=== PATIENT | male | born 1985 | race Caucasian/White ===

== ENCOUNTER 2019-02-15 08:30 | Inpatient (IN) ==
[2019-02-15 09:08] LABS: URINE SOURCE CLEAN CATCH
[2019-02-15 09:11] LABS: BASO# 0.03 X1000 (0.0-0.2); BASO% 0.2 % (0.0-0.8); EOS# 0.05 X1000 (0.0-0.7); EOS% 0.4 % (0.0-10.0); HEMATOCRIT 45.6 % (42.0-52.0); HEMOGLOBIN 15.5 g/dL (14.0-18.0); IMM GRAN# 0.02 X1000 (0.0-0.04); IMM GRAN% 0.2 % (0.0-0.5); LYMPH# 2.67 X1000 (1.2-3.4); LYMPH% 21.6 % (20.5-51.1); MCH 29.8 PG (27-31); MCV 87.7 FL (81-99); MONO# 1.01 X1000 (0.11-0.59); MONO% 8.2 % (1.7-9.3); MPV 10.9 FL (7.4-10.4); NEUT# 8.59 X1000 (1.4-6.5); NEUT% 69.4 % (42.2-75.2); PLT 254 X1000 (130-400); RDW 13.5 % (11.5-14.5); WBC 12.37 X1000 (4.8-10.8)
[2019-02-15 09:12] LABS: BILIRUBIN URINE NEGATIVE (NEGATIVE); BLOOD URINE LARGE (NEGATIVE); COLOR YELLOW; GLUCOSE URINE NEGATIVE (NEGATIVE); KETONE URINE NEGATIVE (NEGATIVE); LEUKOCYTES URINE NEGATIVE (NEGATIVE); NITRITE URINE NEGATIVE (NEGATIVE); PH URINE 5.5; PROTEIN URINE TRACE mg/dL (NEGATIVE); SP GRAVITY URINE 1.023; TURBIDITY URINE CLEAR (CLEAR); UROBILINOGEN URINE NORMAL (NORMAL)
[2019-02-15 09:13] LABS: UR EPITHELIAL CELLS <10 /HPF (<10); URINE BACTERIA NEGATIVE /HPF; URINE RBC TNTC /HPF (<10); URINE WBC <10 /HPF (<10)
[2019-02-15 09:32] LABS: AGAP 8; ALB/GLOB RATIO 1.4; ALBUMIN 4.2 g/dL (3.5-5.0); ALKALINE PHOSPHATASE 89 U/L (32-122); AMYLASE 45 U/L (20-200); BUN 12 mg/dL (8-22); CALCIUM 9.2 mg/dL (8.8-10.2); CHLORIDE 107 mmol/L (98-107); COSMO 280; CREATININE 0.9 mg/dL (0.7-1.2); ESTIMATED GFR > 60; GLUCOSE 106 mg/dL (70-104); GOT 12 U/L (10-34); GPT 10 U/L (10-44); LIPASE 27 U/L (13-60); POTASSIUM 4.4 mmol/L (3.5-5.1); SODIUM 140 mmol/L (136-145); TCO2 25 mmol/L (25-35); TOTAL BILIRUBIN 0.24 mg/dL (0.20-1.00); TOTAL PROTEIN 7.3 g/dL (6.3-8.3)
[2019-02-15] MEDS ORDERED: NS 1,000 ML IV ONE (10:26)
[2019-02-15] MEDS ORDERED: ZOFRAN IV ONE (10:26)
[2019-02-15] MEDS ORDERED: MORPHINE IV ONE (10:26)
--- NOTE | 2019-02-15 10:30 | PROVIDER DOCUMENTATION ---
HPI-Abdominal Pain/GI Problem - General Chief Complaint: Abdominal Pain Stated Complaint: ABD PAIN Time Seen by Provider: 02/15/19 10:04 Source: patient Allergies/Adverse Reactions: Patient Allergies Allergy/AdvReac Type Severity Reaction Status Date / Time Bleach (Sodium Hypochlorite) AdvReac Intermediate SHORTNESS Verified 11/14/18 13:54 OF BREATH buprenorphine HCl * AdvReac "makes me Verified 11/14/18 13:54 [From Buprenex] insane" Home Medications: Home Medication List Medication Instructions Recorded Confirmed Last Taken Type Infliximab [Remicade] 0 mg IV DIRECTED 11/04/16 08/27/18 09/07/17 History 0 Dronabinol [Marinol] 2.5 mg PO BID 10/12/17 08/27/18 08/23/18 History Ondansetron [Zofran Odt] 4 mg PO 4XDAY PRN PRN #40 08/26/18 08/27/18 08/26/18 Rx tab.rapdis Acetaminophen 1 - 2 tab PO Q6H PRN PRN #60 tab 09/04/18 Unknown Rx Levofloxacin [Levaquin] 500 mg PO DAILY #7 tab 09/04/18 Unknown Rx Metronidazole [Flagyl] 500 mg PO TID #21 tab 09/04/18 Unknown Rx Nicotine Patch [Nicoderm Patch] 14 mg TD DAILY patch.td24 09/04/18 Unknown Rx Omeprazole 20 mg PO BID #28 capsule. 09/04/18 Unknown Rx Prednisone [Deltasone] 20 mg PO DAILY #30 tab 09/04/18 Unknown Rx - History of Present Illness-ABD Nature of Presenting Problems: Patient is a 33 yowm who complains of lower abdominal pain that radiates to right testicle since this morning. Had gross hematuria 2 weeks ago that has since resolved. Denies back/flank pain. Denies fever or dysuria. He cannot remember if the pain started in his testicle or in his abdomen. Pain is associated with nausea. He denies any other symptoms and is non-toxic in appearance. Review of Systems - Adult - REVIEW OF SYSTEMS - ADULT Constitutional: reports: no symptoms reported. denies: chills, fever Eyes: reports: no symptoms reported Ears, Nose, Mouth & Throat: reports: no symptoms reported Cardiovascular: reports: no symptoms reported Respiratory: reports: no symptoms reported Gastrointestinal: reports: see HPI, abdominal pain, diarrhea (Hx of Crohn's- pt reports chronic diarrhea), nausea. denies: rectal bleeding, vomiting Genitourinary: reports: see HPI, other (right testicular pain). denies: dysuria, frequency, flank pain, hematuria, urinary retention, urgency Musculoskeletal: reports: no symptoms reported Integumentary: reports: no symptoms reported Neurological: reports: no symptoms reported Psychiatric: reports: no symptoms reported Endocrine: reports: no symptoms reported Hematologic/Lymphatic: reports: no symptoms reported Allergic/Immunologic: reports: no symptoms reported All Other Systems: Reviewed and Negative Past History - Adult - PAST MEDICAL HISTORY-ADULT Review of Records: reports: Old Records Reviewed, Nursing Assessment Review, Med ications Reviewed, Social history reviewed & non-contributory. Major Childhood Illnesses: reports: denies history Cardiovascular: reports: denies history Respiratory: reports: denies history Gastrointestinal: reports: Crohn's Obstetrical/Gynecological: reports: denies history Genitourinary: reports: kidney stones Musculoskeletal: reports: denies history Neurological: reports: denies history Psychiatric: reports: denies history Endocrine/Immune: reports: denies history Other Conditions: reports: denies history, other (hypp) - PRIOR SURGERIES/PROCEDURES Surgical/Procedure History: reports: bowel surgery - PRIOR HOSPITALIZATIONS Prior Hospitalizations: reports: none - IMMUNIZATION STATUS Childhood Immunizations: UTD Flu Vaccine: UTD - FAMILY HISTORY Family History: reviewed, not pertinent - SOCIAL HISTORY Smoking: cigarettes, greater than 1 pack/day Physical Exam-General - PHYSICAL EXAM-ADULT Initial Vital Signs Reviewed: Yes - CONSTITUTIONAL General Appearance: alert, mild distress. negative: lethargic, slow to respond - EYES Eyes: pink conjunctivae - HEAD, EARS, NOSE, MOUTH & THROAT HENMT: normocephalic/atraumatic, moist mucous membranes - NECK Neck: non-tender, full range of motion, supple, normal inspection - RESPIRATORY Respiratory: chest non-tender, lungs clear, normal breath sounds, no pleuratic chest pain, no respiratory distress, no accessory muscle use - CARDIOVASCULAR Cardiovascular: regular rate, rhythm, no gallop, no murmur - GASTROINTESTINAL (ABDOMEN) Abdominal Exam: normal bowel sounds, soft, no organomegaly, no pulsatile mass, tenderness (Diffuse- more across lower abdomen). negative: distended, guarding, rigid, rebound, hernia, mass, hepatomegaly, splenomegaly - GENITOURINARY Male Genitalia: normal genitalia, no hernia, circumcised, epididymal tenderness, testicular tenderness (Right). negative: erythema, herpes-like lesion, hernia mass, inguinal lymphadenopathy, scrotal swelling, urethral discharge, inguinal tenderness - LYMPHATIC Lymphatic: no adenopathy - MUSCULOSKELETAL Back Exam: normal inspection, no CVA tenderness, no vertebral tenderness Extremity: normal range of motion, non-tender, normal gait, normal inspection - SKIN Integumentary: normal color, warm/dry. negative: cyanosis, diaphoresis, jaundice, mottled, pallor - NEUROLOGIC Neurologic: grossly normal, no motor/sensory deficits - PSYCHIATRIC Psych/Mental Status: normal mood/affect, normal thought content, normal thought process, oriented x 3 Progress - PLAN OF CARE/RESULTS Progress/Plan/Lab Results: Vital Signs - 8 hr 02/15/19 08:36 Temperature 97.9 F Pulse Rate 83 Respiratory Rate 18 Blood Pressure 130/88 O2 Sat by Pulse Oximetry 100 Laboratory Results - last 24 hr 02/15/19 02/15/19 02/15/19 08:42 08:42 09:00 WBC 12.37 H RBC 5.20 Hgb 15.5 Hct 45.6 MCV 87.7 MCH 29.8 MCHC 34.0 RDW Std Deviation 13.5 Plt Count 254 MPV 10.9 H Immature Gran % (Auto) 0.2 Neut % (Auto) 69.4 Lymph % (Auto) 21.6 [place] % (Auto) 8.2 Eos % (Auto) 0.4 Baso % (Auto) 0.2 Immature Gran # (Auto) 0.02 Neut # (Auto) 8.59 H Lymph # (Auto) 2.67 [place] # (Auto) 1.01 H Eos # (Auto) 0.05 Baso # (Auto) 0.03 Sodium 140 Potassium 4.4 Chloride 107 Carbon Dioxide 25 Anion Gap 8 BUN 12 Creatinine 0.9 Estimated GFR/1.73 m2 > 60 BUN/Creatinine Ratio 13 Glucose 106 H Calculated Osmolality 280 Calcium 9.2 Total Bilirubin 0.24 AST 12 ALT 10 Alkaline Phosphatase 89 Total Protein 7.3 Albumin 4.2 Globulin 3.1 Albumin/Globulin Ratio 1.4 Amylase 45 Lipase 27 Urine Source CLEAN CATCH Urine Color YELLOW Urine Turbidity CLEAR Urine pH 5.5 Ur Specific [place] 1.023 Urine Protein TRACE A Ur Glucose (Stick) NEGATIVE Ur Ketones (Stick) NEGATIVE Urine Blood LARGE A Urine Nitrite NEGATIVE Urine Bilirubin NEGATIVE Urobilinogen Dipstick NORMAL Urine Leukocytes NEGATIVE Urine WBC (Auto) <10 Urine RBC (Auto) TNTC A U Epithel Cells (Auto) <10 Urine Bacteria (Auto) NEGATIVE Orders Category Date Time Status NPO Diet 02/15/19 08:38 Active ABDOMEN FLAT/UPRIGHT [RAD] Stat Exams 02/15/19 10:[address] RENAL STONE SEARCH [CT] Stat Exams 02/15/19 10:24 Ordered US SCROTUM [US] Stat Exams 02/15/19 10:24 Ordered AMYLASE [CHEM] Stat Lab 02/15/19 08:42 Completed CBC WITH ELECTRONIC DIFF [HEME] Stat Lab 02/15/19 08:42 Completed COMPREHENSIVE METABOLIC PANEL [CHEM] Stat Lab 02/15/19 08:42 Completed LIPASE [CHEM] Stat Lab 02/15/19 08:42 Completed URINALYSIS W/POSS RFLX CULT [URINALYSIS] Stat Lab 02/15/19 09:00 Completed Morphine Med 02/15/19 10:26 Once 4 mg IV NOW ONE Ns 1000 ml IV Bolus X1 Med 02/15/19 10:26 Ordered 0.9% Sodium Chloride Inj [Ns] 1,000 ml IV 999 mls/hr Ondansetron [Zofran] Med 02/15/19 10:26 Once 4 mg IV NOW ONE 1152- Abdominal x ray result, pain control> dispo. Discussed case with Dr. Delgadillo who reviewed patient's CT and labs and recommends admission. [facility] paged at [phone]. Pt in agreement with admission plan. Result Diagrams: 02/15/19 08:42 02/15/19 08:42 - XRAY 1 XRAY Study: Abdomen ( IMPRESSION: No evidence of obstruction or other definite acute abnormality. Postsurgical changes. Electronically signed by Pedrito Harris 02/15/2019 1:49 PM) - CT/MRI 1 CT Study: Renal Stone (IMPRESSION: 1.Focal inflammatory change around the region of the surgical anastomosis at the ileocecal junction that probably represents inflammatory colitis related to Crohn's disease. Infectious colitis is less likely. 2.Right nephrolithiasis with a new calcific density closely associated with the mid to distal right ureter, but there is no hydronephrosis or ureteral dilatation. This may represent a new phlebolith. However, a ureteral stone cannot be excluded. Electronically signed by Yuan Castañeda 02/15/2019 11:29 AM 02/15/19 1129) - ULTRASOUND (By Radiology) 1 US Study: Scrotum (IMPRESSION: No evidence of torsion or mass. Electronically signed by Pedrito Harris 02/15/2019 11:16 AM) - CONSULTS/PCP/HOSPITALIST Notification #1 *Consult/PCP/Hospitalist*: SHELBY Lynch ASSISTANT [employer]FOLIO MANAGER Time Discussed: 14:36 Reason/Comments: admission Consult Disposition: Will see in ED, Admit Departure - Departure Date of Disposition Decision: 02/15/19 Time of Disposition Decision: 14:39 DIAGNOSIS: Colitis Crohns disease Qualifiers: Gastrointestinal tract location: unspecified location Digestive disease complication type: unspecified complication Qualified Code(s): K50.919 - Crohn's disease, unspecified, with unspecified complications Abdominal pain Qualifiers: Abdominal location: unspecified location Qualified Code(s): R10.9 - Unspecified abdominal pain Disposition: ADMITTED INPATIENT 09 Certified Medical Emergency: Emergent Condition: Stable Referrals and Follow-Ups: Lila Nunn CRNP [Primary Care Provider] - - Critical Care Note This patient required my direct & personal management of CC.: No Attestation - Physician/ DAISHA Attestation Patient care was provided by Advanced Practice Provider:: Yes Advanced Practice Provider:: Sunni Mcrae Advanced Practice Provider documentation review:: The Mid-level provider documentation, treatment plan and medical decision making was reviewed by the physician who agrees with all treatment and medical decision making by the P. The physician spent face to face time with patient:: No Advanced Practice Provider documentation review:: Supervising physician onsite and consulted in the evaluation and care of this patient. The physician did not have a face to face encounter with the patient.
--- NOTE | 2019-02-15 11:19 | Diag Imaging Result Doc PS360 ---
EXAM: US SCROTUM 02/15/2019 HISTORY: right testicular pain TECHNIQUE: Scrotal ultrasound COMMENT: There is color Doppler flow in both testicles. There are no testicular masses. The epididymides are normal in appearance. There is a small amount of fluid in both hemiscrota. IMPRESSION: No evidence of torsion or mass. Electronically signed by Pedrito Harris 02/15/2019 11:16 AM
--- NOTE | 2019-02-15 11:31 | Diag Imaging Result Doc PS360 ---
EXAM: CT RENAL STONE SEARCH INDICATION: abdominal pain,nausea TECHNIQUE: This exam was performed using automated exposure control, adjustment of mA or kV according to patient size, and/or use of iterative reconstruction technique. COMPARISON: 08/27/2018 FINDINGS: The liver, gallbladder, spleen, pancreas, and adrenal glands are unremarkable. There are several intrarenal stones on the right. There is a 3 mm calcific density in the pelvis on the right that is very closely associated with the mid to distal right ureter. This cannot be seen on the previous study. However, there is no hydronephrosis or ureteral dilation. Although this could represent a new phlebolith, a small ureteral stone cannot be excluded. The left kidney is unremarkable. The urinary bladder is unremarkable. There are stable surgical staple lines associated with the proximal colon and the ileum related to Crohn's disease. There is inflammatory stranding that was not present on the previous study is emanating from the proximal colon. There are shotty mesenteric lymph nodes around this region. This is probably focal inflammatory colitis related to Crohn's disease. There is no bowel obstruction. The remainder of the GI tract is unremarkable. IMPRESSION: 1.Focal inflammatory change around the region of the surgical anastomosis at the ileocecal junction that probably represents inflammatory colitis related to Crohn's disease. Infectious colitis is less likely. 2.Right nephrolithiasis with a new calcific density closely associated with the mid to distal right ureter, but there is no hydronephrosis or ureteral dilatation. This may represent a new phlebolith. However, a ureteral stone cannot be excluded. Electronically signed by Yuan Castañeda 02/15/2019 11:29 AM
--- NOTE | 2019-02-15 13:51 | Diag Imaging Result Doc PS360 ---
EXAM: ABDOMEN FLAT/UPRIGHT 02/15/2019 HISTORY: abd pain,h/o bowel obstruction TECHNIQUE: Flat and upright abdomen COMMENT: There are suture lines on the right side of the abdomen. The stomach and small bowel are not distended. There is some gas in the colon without evidence of dilatation. There are surgical clips in the right upper quadrant. There are phleboliths in the pelvis. Compared to the previous examination of 08/28/2018 the quantity of small bowel gas is much less. IMPRESSION: No evidence of obstruction or other definite acute abnormality. Postsurgical changes. Electronically signed by Pedrito Harris 02/15/2019 1:49 PM
[2019-02-15] MEDS ORDERED: TORADOL IV ONE (13:52)
[2019-02-15] MEDS ORDERED: ZOFRAN ONE (13:53)
[2019-02-15] MEDS ORDERED: NS 2,000 ML ONE (13:53)
[2019-02-15] MEDS ORDERED: TORADOL ONE (14:01)
[2019-02-15] MEDS ORDERED: DILAUDID IV ONE (14:26)
[2019-02-15] MEDS ORDERED: ZOSYN 3.375 GM in NS 50 ML IV ONE ×2 (14:27→20:00)
[2019-02-15] MEDS ORDERED: NORCO-7.5 PO PRN ×2 (14:50→19:08)
[2019-02-15] MEDS ORDERED: TYLENOL PO PRN (14:50)
[2019-02-15] MEDS: NS 1,000 ML IV SCH (15:00)
[2019-02-15] MEDS ORDERED: PHENERGAN IV PRN (15:37)
[2019-02-15] MEDS ORDERED: SODIUM CHLORIDE 0.9% INJ PRN (15:37)
[2019-02-15] MEDS: LEVAQUIN 750 MG/D5W 750 MG/150 ML IVPB IV SCH (16:15)
[2019-02-15] MEDS: FLAGYL 500 MG/NS 500 MG/100 ML IVPB IV SCH (16:15)
--- NOTE | 2019-02-15 18:28 | HISTORY AND PHYSICAL ---
PRIMARY CARE PROVIDER: Dr. Irena Delgadillo. JAMB CUTTER: Dr. Beltre. CHIEF COMPLAINT: Right flank pain that radiates all the way down to the right testicle along with generalized abdominal pain. HISTORY OF PRESENT ILLNESS: Mr. Marcos Perkins is a 33-year-old male with a medical history of Crohn's disease since 2005 that has required two colon resections since then, with the most recent colon resection being in August [address] Alcaraz. States that in August 2018 they stopped his Remicade as it apparently was not working for the Crohn's anymore. Started him on Stelara, which he states he was allergic to. They attempted to put him on steroids, which he states he took for about two weeks and then stopped, so he has not been taking anything for his Crohn's probably since November and so now he has been having generalized abdominal pain and around two weeks ago actually had right flank pain with hematuria and still has that. It radiates down to the right testicle. He has generalized abdominal pain with the nausea. He states that he has chronic diarrhea, has bloody, black stools continuously, anywhere up to 12 per day. He also states he had an appointment with Dr. Beltre for next Tuesday to address resuming his Crohn's disease medication. The workup included a renal CT which revealed focal inflammatory change around the region of the surgical anastomosis at the ileocecal junction that probably represents inflammatory colitis related to Crohn's, less likely infectious colitis. Then, it also shows the right nephrolithiasis with a new calcific density closely associated with the mid to distal right ureter. There is no hydronephrosis yet or ureteral dilatation. So, will admit him for Crohn's flare and for right nephrolithiasis and will consult Urology as he has had nephrolithiasis in the past with lithotripsy and will consult Dr. Rivers with Gastroenterology for the Crohn's flare. PAST MEDICAL HISTORY: 1. Crohn's disease since 2005. 2. Bilateral nephrolithiasis. Has had lithotripsy in the past. 3. HYPP. 4. Small bowel obstruction. PAST SURGICAL HISTORY: 1. Appendectomy. 2. In 2005 had a partial bowel resection. 3. In August 2018 had another small bowel resection due to obstruction. 4. Lithotripsy. SOCIAL HISTORY: Smokes one pack per day and has so for three years. He uses smokeless tobacco, one can per week. Very rarely drinks alcohol. Occasionally smokes marijuana but denies any other illicit drug use. He is with one child. He works for the [employer] in [employer]. FAMILY HISTORY: He does not know his father's side of the family but his mother's side of the family has lung cancer, breast cancer, myocardial infarction, and stroke. ALLERGIES: Buprenorphine hydrochloride and bleach. HOME MEDICATIONS: Have not been verified yet. REVIEW OF SYSTEMS: A 14-point review of systems are complete and all are negative except for those mentioned above in HPI. PHYSICAL EXAMINATION: VITAL SIGNS: Temperature 97.9, heart rate 83, respiratory rate 18, blood pressure 130/88, O2 saturation 100% on room air. GENERAL: Mr. Marcos Perkins is a 33-year-old male. He is in no acute distress. He is able to answer questions appropriately. HEENT: Atraumatic and normocephalic. Pupils equal, round and reactive to light. Extraocular movements intact. Mucous membranes are dry. NECK: Trachea is midline. CARDIOVASCULAR: S1 and S2. Regular rate and rhythm. No rubs, gallops or murmurs. No lower extremity edema. +2 dorsalis and radial pulses. Negative JVD or carotid bruits. PULMONARY: Clear to auscultation, bilateral breath sounds. No accessory muscle use or work of breathing noted. GI: Soft. Tender primarily in the right upper and lower quadrant. There is some right CVA tenderness as well with palpation. There is radiation of pain down to the right testicle. EXTREMITIES: Moves all extremities equally with full range of motion. NEUROLOGICAL: Alert and oriented x 3. Follows commands. Sensory is intact. SKIN: Warm, dry and intact. LABORATORY DATA: White blood cells 12,000, hemoglobin 15, hematocrit 45, platelet count 254,000, Sodium 140, potassium 4.4, BUN 12, creatinine 0.9, glucose 106, calcium 9.2, bilirubin 0.24, AST 12, ALT 10, albumin 4.2, amylase 45, lipase 27. Urinalysis trace protein, large blood, too numerous to count red blood cells. IMAGING: Abdominal x-ray with no evidence of obstruction or other definitive acute abnormality. Post surgical changes. Renal CT with focal inflammatory change around the region of the surgical anastomosis at the ileocecal junction, probably represents inflammatory colitis related to Crohn's disease; infectious colitis is less likely; right nephrolithiasis with a new calcific density closely associated with mid to distal right ureter, but there is no hydronephrosis or ureteral dilatation. Scrotal ultrasound with no evidence of torsion or mass. ASSESSMENT AND PLAN: 1. Crohn's now with Crohn's flare, likely due to not using Crohn's medication or immunosuppressive drugs. Continues to have bloody stools, several per day. Will start him on the budesonide 9 mg orally daily. Will do antiemetics as needed for the nausea. Check the stool for blood, of course. Consult Dr. Rivers. The patient does see Dr. Beltre as an outpatient, but he no longer comes here. Will check a CRP as well to see how inflamed he is. Will also do Levaquin and Flagyl as well. 2. Right nephrolithiasis, currently does not appear to be obstructed, but he is having symptoms of hematuria, right flank pain that radiates down to the right testicle, there is large blood in the urine on the urinalysis. He has had lithotripsy before with Dr. Bee. Will reconsult him for possible need of lithotripsy once again. 3. Tobacco abuse, smokeless and cigarettes. Cessation discussed. Will add a nicotine patch. Dictated by RUBI Dai for Leonard White MD cc: RUBI Dai MD A. Joseph Alexander, MD Juliana Clark, CRNP
--- NOTE | 2019-02-15 18:42 | HISTORY AND PHYSICAL ---
SUBJECTIVE: Mr. Perkins was evaluated in the ER because of abdominal pain. Of note, Mr. Perkins is a 33-year-old male with a history of Crohn disease, who had an exploratory laparotomy with resection of ileocolic anastomosis and creation of ileocolic anastomosis with lysis of adhesion in August 2008. Subsequently, he seems to have been doing fairly okay and follows up with Dr. Beltre. Came back this time because of abdominal pain, for which a CT scan has shown a focal inflammatory change around the region of the surgical anastomosis at the ileocecal joint that represents inflammatory colitis related to Crohn's. There is also a right nephrolithiasis. ASSESSMENT AND PLAN: I have reviewed the patient's clinical data. I agree with the History and Physical that has been dictated. Mr. Perkins is in Crohn's flare, and also has a right nephrolithiasis, but there is no hydronephrosis or ureteral dilation, at least on the imaging scan. He is going to be on adequate IV fluids, antibiotic therapy, steroids for the Crohn's flare, and probiotics. We will check his vitamin D levels and we will get GI to evaluate him. Please refer to the details of the History and Physical in the chart. cc: Leonard White MD
[2019-02-15] MEDS: ZOFRAN IV PRN (19:46)
[2019-02-15] MEDS: DILAUDID IV PRN (19:46)
[2019-02-15] MEDS: NICODERM PATCH TD SCH (22:25)
[2019-02-16] MEDS: ENTOCORT EC PO SCH ×2 (00:14→09:18)
[2019-02-16] MEDS: CULTURELLE PO SCH ×2 (00:16→08:59)
[2019-02-16] MEDS: PRILOSEC PO SCH ×2 (00:16→08:59)
[2019-02-16] MEDS: DILAUDID IV PRN ×3 (00:34→12:07)
[2019-02-16] MEDS: FLAGYL 500 MG/NS 500 MG/100 ML IVPB IV SCH ×2 (00:34→08:59)
[2019-02-16] MEDS: ZOFRAN IV PRN ×2 (00:35→12:09)
[2019-02-16] MEDS: NS 1,000 ML IV SCH ×2 (04:52→10:15)
[2019-02-16 07:31] LABS: BASO# 0.01 X1000 (0.0-0.2); BASO% 0.1 % (0.0-0.8); EOS# 0.08 X1000 (0.0-0.7); EOS% 0.9 % (0.0-10.0); HEMATOCRIT 42.4 % (42.0-52.0); HEMOGLOBIN 14.1 g/dL (14.0-18.0); LYMPH# 1.72 X1000 (1.2-3.4); LYMPH% 18.7 % (20.5-51.1); MCH 29.4 PG (27-31); MCHC 33.3 g/dL (33-37); MCV 88.3 FL (81-99); MONO# 0.74 X1000 (0.11-0.59); MPV 11.1 FL (7.4-10.4); NEUT# 6.67 X1000 (1.4-6.5); NEUT% 72.3 % (42.2-75.2); PLT 202 X1000 (130-400); RDW 13.2 % (11.5-14.5); WBC 9.22 X1000 (4.8-10.8)
[2019-02-16 07:36] LABS: INR 1.05; PROTIME 14.5 Seconds (11.0-16.0); PTT 31.9 Seconds (22.3-41.8)
[2019-02-16 07:54] LABS: AGAP 7; ALB/GLOB RATIO 1.5; ALBUMIN 3.6 g/dL (3.5-5.0); ALKALINE PHOSPHATASE 83 U/L (32-122); BUN 12 mg/dL (8-22); CALCIUM 8.4 mg/dL (8.8-10.2); CHLORIDE 107 mmol/L (98-107); COSMO 277; CREATININE 0.7 mg/dL (0.7-1.2); ESTIMATED GFR > 60; GLUCOSE 97 mg/dL (70-104); GOT 9 U/L (10-34); GPT 7 U/L (10-44); MAGNESIUM 1.8 mg/dL (1.5-2.7); POTASSIUM 3.9 mmol/L (3.5-5.1); SODIUM 139 mmol/L (136-145); TCO2 25 mmol/L (25-35); TOTAL BILIRUBIN 0.53 mg/dL (0.20-1.00)
--- NOTE | 2019-02-16 08:04 | CONSULTATION ---
DATE OF CONSULTATION: 02/16/2019 ATTENDING AND REFERRING PHYSICIAN: Hospitalist. HISTORY OF PRESENT ILLNESS: This 33-year-old male was admitted with exacerbation of Crohn's disease and possible right distal ureteral stone. The patient has a long history of renal lithiasis and is status post right extracorporeal shockwave lithotripsy in October,. He states he developed severe abdominal pain that occasionally radiated into the right testicle. A CT stone search revealed exacerbation of the Crohn's process, and also a possible right distal ureteral stone that was about 3 mm in diameter. There was no hydronephrosis. The patient states that previously he was doing well. He denies any type of voiding problems. PAST MEDICAL HISTORY: As noted in the HPI; history of small bowel obstruction. CURRENT MEDICATIONS: Documented on the chart. PAST SURGICAL HISTORY: 1. Appendectomy. 2. Partial small bowel resection. 3. Ex lap for small bowel obstruction. 4. Extracorporeal shockwave lithotripsy. SOCIAL HISTORY: Tobacco-he smokes cigarettes and occasionally uses smokeless tobacco. ETOH use rare. ALLERGIES: He is allergic to buprenorphine and bleach. He denies any problems with diabetes, hypertension, heart disease, strokes, seizures, or recent pulmonary problems. PHYSICAL EXAMINATION: General: A normally developed, well-nourished, age apparent, white male, oriented in all ways and cooperative. He does not appear to be any pain at this time. HEENT: Normal for age. Lungs: Clear. Cardiovascular: Regular rate and rhythm. Abdomen: Flat, soft, diffuse tenderness in all quadrants. Genitourinary: Circumcised male. Meatus is normal. Both testes are down and palpably normal. There are no inguinal hernias. Rectal: Deferred. Extremities: No clubbing, cyanosis, or edema. Neurologic: No focal deficits. LABORATORY EVALUATION: He has a white count of 9.22, hemoglobin 14.1, hematocrit of 42.4 and platelets are 202,000. Serum electrolytes are normal. BUN 12, creatinine 0.9. Urinalysis has too numerous to count red cells per high-power field. No crystals. CT stone search is as noted in the HPI. IMPRESSION: 1. Possible right distal ureteral stone (3 mm in diameter). This has a greater than 90% chance of spontaneously passing. 2. Crohn's' disease. Recommend strain all urine. 3. Hydration. 4. Flomax 0.4 mg a day. Thank you for this consultation. cc: Gino Bee MD
[2019-02-16] MEDS: NICODERM PATCH TD SCH ×2 (09:00→09:21)
[2019-02-16] MEDS ORDERED: FLOMAX PO SCH (09:00)
[2019-02-16 11:38] VITALS: BP 126/71
--- NOTE | 2019-02-16 15:15 | GASTROENTEROLOGY CONSULTATION ---
DATE: 02/16/2019 REASON FOR CONSULTATION: Abdominal pain, history of Crohn disease. HISTORY OF PRESENT ILLNESS: This is a 33-year-old male, patient of Dr. Wise. He has been following the patient for Crohn disease. Patient had initial diagnosis of Crohn disease in 2005. Patient states he had initial small-bowel resection at [facility] around 2007. He had repeat resection in August [address] Alcaraz. He had exploratory laparotomy, resection of ileocolic anastomosis with creation of ileocolic anastomosis and lysis of adhesions in August [address] Alcaraz. Patient states prior to that surgery he had been on Remicade that was apparently not working. He was then changed from Remicade to Stelara and patient states he had allergic reaction. He complained of itching, rash and his throat closing up. He was then treated for several weeks of steroids. The patient states he took Entocort but it caused severe abdominal cramping and he stopped it. Since then he has not been on anything for his Crohn's. Patient has reported generalized abdominal pain, sometimes right flank pain. He has also noted hematuria. He has a history of kidney stones. He has been seen by Dr. Bee who is following him. The patient had reported some recent diarrhea. Patient has had some rectal bleeding but reports none over the last month. He has had generalized abdominal pain but he was not sure if it was related to his Crohn's or kidney stones. PAST MEDICAL HISTORY: Crohn disease diagnosed in 2005, history of nephrolithiasis, history of lithotripsy, follows with Dr. Bee. PAST SURGICAL HISTORY: Appendectomy, partial bowel resection in 2005, bowel resection in 2018 and lithotripsy for kidney stones. ALLERGIES: To bleach causing shortness of breath, Buprenex reaction "makes me insane." HOME MEDICATIONS: Acetaminophen 1 to 2 tablets every 6 hours as needed, Marinol 2.5 mg twice a day, [place] 7.5 every 6 hours as needed, probiotic twice daily, Levaquin 500 mg daily, Flagyl 500 mg 3 times a day, nicotine patch daily, omeprazole 20 mg twice a day, Zofran as needed. SOCIAL HISTORY: He smokes 1 pack of cigarettes a day and also uses smokeless tobacco. Occasional alcohol use. Occasional marijuana use. He is . He has 1 child. He works for the [employer] in maintenance. FAMILY HISTORY: Lung cancer, breast cancer, heart disease and stroke on his mother's side. REVIEW OF SYSTEMS: Per history of present illness. PHYSICAL EXAMINATION: Vital Signs: Temperature 97.9 degrees, pulse 82, respirations 18, blood pressure 126/71. General: Patient is awake and alert in no acute distress. HEENT: Normocephalic, atraumatic. Pupils equal, round, reactive to light. Sclerae nonicteric. Cardiovascular: Regular rate and rhythm. Respiratory: Lung sounds clear bilaterally. Abdomen: Soft. Tenderness diffusely, positive bowel sounds. Extremities: No lower extremity edema noted. DIAGNOSTIC RESULTS: Laboratory. Hematology. WBC 9.22, hemoglobin 14.1, hematocrit 42.4, MCV 88.3, platelets 202,000. Chemistry. Sodium 139, potassium 3.9, chloride 107, CO2 25, BUN 12, creatinine 0.7, glucose 97, calcium 8.4, total bilirubin 0.53, AST 9, ALT 7, alkaline phosphatase 83. C-reactive protein 1.81, amylase 45, lipase 27. Urinalysis showed a large amount of blood and too numerous to count RBCs. ASSESSMENT AND PLAN: 1. Abdominal pain. 2. Possible right distal urethral stone measuring 3 mm in diameter. Patient has been seen Dr. Bee who feels that he will most likely pass the stone spontaneously. 3. Crohn disease with history of surgery, bowel resections x2. Patient follows with Dr. Beltre. He actually has an appointment with Dr. Beltre in the office on Tuesday. Patient would prefer to be discharged home to follow with Dr. Beltre for further recommendations regarding his Crohn disease. We will continue to follow during this hospitalization. We have discussed the option of starting medications while in the hospital but patient prefers to be discharged to follow with Dr. Beltre. We have spoken with Dr. Hightower who will most likely discharge the patient today. Patient has also been seen by Dr. Rivers. Thank you for this consultation. Dictated by RUBI Esparza for Ervin Rivers MD cc: RUBI Barakat MD
== END 2019-02-16 16:37 | disposition home or self-care (01) | DRG 386 ==
LOC: ED 08:30 → EDIPHOLD 08:31 → SUATTDRO 08:31 → 3N 21:03
PROVIDERS: ATTEND Internal Medicine
CPT/HCPCS: 74019; 74020; 74176; 76870; 80053; 81001; 82150; 82306; 83605; 83690; 83735; 84443; 85025; 85610; 85651; 85730; 86140; 87040; 96361; 96365; 96366; 96367; 96368; 96375; 96376; 99285; A9270; J1170; J1885; J1956; J2270; J2405; J2543; J7030; S0030